=== PATIENT | female | born 1985 | race Caucasian/White ===

== ENCOUNTER 2022-05-11 13:41 | Emergency (ER) | payer BC ==
[~2022-05-11] VITALS: Ht 167.6 cm; Wt 95.7 kg
[2022-05-11 13:41] VITALS: BP 134/81
[2022-05-11] MEDS ORDERED: MORPHINE 4 MG/ML 1ML VIAL/SYRINGE IV ONE (14:25)
[2022-05-11] MEDS ORDERED: ONDANSETRON 4MG/2ML VIAL IV ONE (14:25)
[2022-05-11 14:41] LABS: BASO # 0.1 10^3/uL (0.0-0.2); BASO % 0.6 % (0.0-1.0); HEMATOCRIT 42.5 % (36.0-47.0); HEMOGLOBIN 13.9 g/dl (12.0-15.5); LYMPH # 1.2 10^3/uL (1.5-5.0); LYMPH % 13.9 % (24.0-44.0); MEAN CORPUSCULAR HEMOGLOBIN 33.1 pg (27.0-33.0); MEAN CORPUSCULAR HGB CONC 32.7 g/dl (32.0-36.5); MEAN CORPUSCULAR VOLUME 101.2 fl (80.0-96.0); MONO # 0.8 10^3/uL (0.0-0.8); MONO % 8.8 % (2.0-8.0); NEUTROPHILS # 6.6 10^3/uL (1.5-8.5); NEUTROPHILS % 76.4 % (36.0-66.0); PLATELET COUNT, AUTOMATED 218 10^3/uL (150-450); WHITE BLOOD COUNT 8.7 10^3/uL (4.0-10.0)
[2022-05-11 15:03] LABS: ERYTHROCYTE SEDIMENTATION RATE 19 mm/hr (0-20)
[2022-05-11] MEDS ORDERED: ISOVUE-370 76% 100ML VIAL As Ordered ONE (15:11)
[2022-05-11 15:12] LABS: ALBUMIN 3.9 GM/DL (3.2-5.2); BILIRUBIN,DIRECT 0.3 MG/DL (0.0-0.2); BILIRUBIN,TOTAL 0.9 MG/DL (0.2-1.0); C REACTIVE PROTEIN QUANTITATIV 2.79 MG/DL (0.00-0.30); TOTAL PROTEIN 7.3 GM/DL (6.4-8.2)
[2022-05-11] MEDS ORDERED: AMOX875T2 (16:53)
[2022-05-11] MEDS ORDERED: LIDOCAINE VISCOUS 2% SOLN 15ML UDC SSP ONE (17:25)
[2022-05-11] MEDS ORDERED: methylPREDNISolone 125MG 2ML VIAL IV ONE (17:40)
[2022-05-11] MEDS ORDERED: KETOROLAC 30 MG/ML 1ML VIAL IM ONE (17:40)
[2022-05-11] MEDS ORDERED: AMPICILLIN SOD/SULBACTAM SOD 3 GM in D5W MINI-BAG PLUS 100 ML IV ONE (17:40)
[2022-05-11] MEDS ORDERED: KETOROLAC 30 MG/ML 1ML VIAL IV ONE (17:50)
== END 2022-05-11 18:26 | disposition home or self-care (01) ==
LOC: M ED 13:41
DX: K04.7 Periapical abscess without sinus (principal); K11.20 Sialoadenitis, unspecified; K02.9 Dental caries, unspecified
CPT/HCPCS: 70487; 80047; 80076; 85025; 85652; 86140; 96365; 96375; 99283; J0295; J2270; J2405; J2930; Q9967